=== PATIENT | female | born 1960 | race Caucasian/White ===

== ENCOUNTER → 2016-08-08 | Outpatient (CLI) | payer MEDICAID ==
--- NOTE | 2016-08-09 11:12 | MM ---
Reason for exam: screening (asymptomatic). Last mammogram was performed 1 year and 1 month ago. History: Patient is postmenopausal. Family history of breast cancer in paternal grandmother. Physical Findings: A clinical breast exam by your physician is recommended on an annual basis and results should be correlated with mammographic findings. MG 3D Screening Mammo W/Cad Bilateral CC and MLO view(s) were taken. Prior study comparison: July 20, 2015, bilateral MG 3d screening mammo w/cad. July 08, 2014, bilateral MG screening mammo w CAD. July 04, 2013, bilateral digital screening mammo w/CAD. There are scattered fibroglandular densities. No significant changes when compared with prior studies. ASSESSMENT: Negative, BI-RAD 1 RECOMMENDATION: Routine screening mammogram of both breasts in 1 year.
== END | disposition home or self-care (01) ==
LOC: RADMAMWWP 12:35
PROVIDERS: ATTEND Obstetrics & Gynecology
DX: Z12.31 Encounter for screening mammogram for malignant neoplasm of breast (principal); Z80.3 Family history of malignant neoplasm of breast
CPT/HCPCS: 77063; G0202

== ENCOUNTER 2017-02-01 08:06 | Day surgery (SDC) | payer MEDICAID ==
[2017-01-30 15:20] VITALS: BMI 36.0
--- NOTE | 2017-02-01 07:51 | P.GSHP ---
History of Present Illness H&P Date: 02/01/17 CHIEF COMPLAINT: Colon screen HISTORY OF PRESENT ILLNESS: The patient is a 56-year-old female who presents for colon screen. Lower endoscopy was offered for further evaluation and management. PAST MEDICAL HISTORY: Please see list. PAST SURGICAL HISTORY: Please see list. MEDICATIONS: Please see list. ALLERGIES: Please see list. SOCIAL HISTORY: No illicit drug use FAMILY HISTORY: No reports of Crohn disease or ulcerative colitis. REVIEW OF ORGAN SYSTEMS: CONSTITUTIONAL: No reports of fevers or chills. PHYSICAL EXAM: VITAL SIGNS: Stable GENERAL: Well-developed pleasant in no acute distress. HEENT: No scleral icterus. Extraocular movements grossly intact. Moist buccal mucosa. NECK: Supple without lymphadenopathy. CHEST: Unlabored respirations. Equal bilateral excursions. CARDIOVASCULAR: Regular rate and rhythm. Distal 2+ pulses. ABDOMEN: Soft, nontender, nondistended. MUSCULOSKELETAL: No clubbing, cyanosis, or edema. ASSESSMENT: 1. Colon screen. PLAN: 1. Recommend proceeding with a lower endoscopy Past Medical History Past Medical History: Thyroid Disorder Additional Past Medical History / Comment(s): hx. multiple colon polyps History of Any Multi-Drug Resistant Organisms: None Reported Past Surgical History: Bowel Resection Additional Past Surgical History / Comment(s): D&C, isrrael-colectomy Past Anesthesia/Blood Transfusion Reactions: No Reported Reaction Smoking Status: Never smoker - Past Family History Father Family Medical History: Cancer Additional Family Medical History / Comment(s): AT AGE 69- LUNG CA WAS HEAVY SMOKER Mother Family Medical History: CVA/TIA, Hypertension, Osteoarthritis (OA) Additional Family Medical History / Comment(s): MOM IS 88 Sister(s) Family Medical History: Blood Disorder Additional Family Medical History / Comment(s): factor 5 Medications and Allergies Home Medications Medication Instructions Recorded Confirmed Type Levothyroxine Sodium [Synthroid] 100 mcg PO DAILY 02/05/14 01/30/17 History Calcium Carbonate/Vitamin D3 1 tab PO DAILY 05/16/14 01/30/17 History [Calcium 600 + Vit D Tablet] Loratadine 10 mg PO DAILY PRN 01/15/16 01/30/17 History Allergies Allergy/AdvReac Type Severity Reaction Status Date / Time hydromorphone HCl AdvReac Severe Nausea & Verified 01/30/17 15:02 [From Dilaudid] Vomiting
[~2017-02-01 08:06] MED LIST: LACTATED RINGERS 1,000 ML IV SCH
[2017-02-01 08:27] VITALS: RESP 16; TEMP 96.9
[2017-02-01] MEDS ORDERED: LIDOCAINE 1% 20 ML VIAL (10MG/ML) FOR IV START INTRADERMA ONE (08:34)
[2017-02-01] MEDS ORDERED: PROPOFOL 10 MG/ML 20 ML VIAL IV ONE (08:43)
[2017-02-01] MEDS ORDERED: LIDOCAINE 1% INJ 10MG/ML (20 ML MDV) ONE (08:43)
--- NOTE | 2017-02-01 09:16 | P.PCN ---
Date of Procedure: 02/01/17 Description of Procedure: PREOPERATIVE DIAGNOSIS: Colonoscopy screening. History of the malignant colorectal polyp ascending colon. History of right hemicolectomy. POSTOPERATIVE DIAGNOSIS: Colonoscopy screening. History of the malignant colorectal polyp ascending colon. History of right hemicolectomy. Colorectal polyp at transverse colon. Diverticulosis, scattered. OPERATION: Colonoscopy to the ileocolic anastomosis. Colonoscopy with cold forceps biopsy at 18 cm from the anal verge. Colonoscopy with snare polypectomy at 20 cm from the anal verge. SURGEON: Bettye Guallpa MD. ANESTHESIA: MAC. INDICATIONS: The patient is a 56-year-old female who presents for colonoscopy surveillance following right hemicolectomy 3 years ago for malignant colon polyp. Benefits and risks were described and informed consent was obtained. DESCRIPTION OF PROCEDURE: The patient had undergone Gatorade, MiraLAX and Dulcolax prep. She had been brought into the operating room and laid in the left lateral decubitus position. After adequate intravenous sedation, the rectum was examined with 2% lidocaine jelly. No external hemorrhoids were encountered. The rectal tone was within normal limits. No lesions were palpated in the rectal vault. She had a very tortuous sigmoid colon. Abdominal wall pressure was needed to advance the colonoscope. An Olympus colonoscope was advanced until the ileocecal valve was clearly viewed. The prep was excellent with clear visualization of the mucosal folds. The scope was removed with visualization of each mucosal fold. Mild sigmoid diverticulosis was encountered. Hyperplastic polyps were found at 18 cm from the anal verge 3 of 3 mm in size. These bowels were cold forceps biopsy to completion. At 20 cm from the anal verge, a hyperplastic 4 mm polyp was snare polypectomy. Retroflexion of the scope demonstrated grade 1 internal hemorrhoids without active bleeding or inflammation. The colon was desufflated. The patient had tolerated the procedure well. Withdrawal time was over 6 minutes. FINDINGS: Internal hemorrhoids, grade 1 No external prolapsed hemorrhoids. Total 4 polyps extracted: -Hyperplastic polyps were found at 18 cm from the anal verge 3 of 3 mm in size , cold forceps biopsy to completion. -At 20 cm from the anal verge, a hyperplastic 4 mm polyp was snare polypectomy. Scattered diverticulosis mild at sigmoid colon. No arteriovenous malformations. RECOMMENDATIONS: Lower endoscopy, 2018. Yearly screening for history of colorectal cancer through 2019. Plan - Discharge Summary New Discharge Prescriptions: No Action Levothyroxine Sodium [Synthroid] 100 mcg PO DAILY Calcium Carbonate/Vitamin D3 [Calcium 600 + Vit D Tablet] 1 tab PO DAILY Loratadine 10 mg PO DAILY PRN PRN Reason: allergies Discharge Medication List Levothyroxine Sodium [Synthroid] 100 mcg PO DAILY 02/05/14 [History] Calcium Carbonate/Vitamin D3 [Calcium 600 + Vit D Tablet] 1 tab PO DAILY [History] Loratadine 10 mg PO DAILY PRN 01/15/16 [History]
[2017-02-01 09:54] VITALS: BP 124/77; PULSE 71
== END 2017-02-01 10:17 | disposition home or self-care (01) ==
LOC: ORWHC2ENDO 08:06
PROVIDERS: ATTEND Surgery Plastic and Reconstructive Surgery
DX: Z12.11 Encounter for screening for malignant neoplasm of colon (principal); K63.5 Polyp of colon; K57.30 Diverticulosis of large intestine without perforation or abscess without bleeding; K64.0 First degree hemorrhoids; Q43.8 Other specified congenital malformations of intestine; Z90.49 Acquired absence of other specified parts of digestive tract; Z85.038 Personal history of other malignant neoplasm of large intestine; Z86.010 Personal history of colon polyps; E07.9 Disorder of thyroid, unspecified; Z79.899 Other long term (current) drug therapy; Z88.5 Allergy status to narcotic agent
CPT/HCPCS: 88305; 45380; 45385; J2001; J2704

== ENCOUNTER → 2017-08-15 | Outpatient (CLI) | payer MEDICAID ==
--- NOTE | 2017-08-17 13:02 | MM ---
Reason for exam: screening (asymptomatic). Last mammogram was performed 1 year ago. History: Patient is postmenopausal. Family history of breast cancer in paternal grandmother. Physical Findings: A clinical breast exam by your physician is recommended on an annual basis and results should be correlated with mammographic findings. MG 3D Screening Mammo W/Cad Bilateral CC and MLO view(s) were taken. Prior study comparison: August 08, 2016, bilateral MG 3d screening mammo w/cad. July 20, 2015, bilateral MG 3d screening mammo w/cad. There are scattered fibroglandular densities. No significant changes when compared with prior studies. ASSESSMENT: Negative, BI-RAD 1 RECOMMENDATION: Routine screening mammogram of both breasts in 1 year.
== END | disposition home or self-care (01) ==
LOC: RADMAMWWP 16:16
PROVIDERS: ATTEND Obstetrics & Gynecology
DX: Z12.31 Encounter for screening mammogram for malignant neoplasm of breast (principal)
CPT/HCPCS: 77063; 77067

== ENCOUNTER → 2018-07-27 | Day surgery (SDC) | payer MEDICAID ==
[2018-06-29 14:58] VITALS: BMI 30.9
[~2018-07-27] MED LIST changes: +LIDOCAINE 1% 20 ML VIAL (10MG/ML) FOR IV START INTRADERMA ONE; +MIDAZOLAM 2 MG/2 ML VIAL ONE; +PROPOFOL 10 MG/ML 20 ML VIAL IV ONE; +fentaNYL (PF) 50 MCG/ML 2 ML AMP ONE
--- NOTE | 2018-07-27 08:45 | P.GSHP ---
History of Present Illness H&P Date: 07/27/18 CHIEF COMPLAINT: Colon screen HISTORY OF PRESENT ILLNESS: The patient is a 58-year-old female who presents for colon screen. Lower endoscopy was offered for further evaluation and management. PAST MEDICAL HISTORY: Please see list. PAST SURGICAL HISTORY: Please see list. MEDICATIONS: Please see list. ALLERGIES: Please see list. SOCIAL HISTORY: No illicit drug use FAMILY HISTORY: No reports of Crohn disease or ulcerative colitis. REVIEW OF ORGAN SYSTEMS: CONSTITUTIONAL: No reports of fevers or chills. PHYSICAL EXAM: VITAL SIGNS: Stable GENERAL: Well-developed pleasant in no acute distress. HEENT: No scleral icterus. Extraocular movements grossly intact. Moist buccal mucosa. NECK: Supple without lymphadenopathy. CHEST: Unlabored respirations. Equal bilateral excursions. CARDIOVASCULAR: Regular rate and rhythm. Distal 2+ pulses. ABDOMEN: Soft, nontender, nondistended. MUSCULOSKELETAL: No clubbing, cyanosis, or edema. ASSESSMENT: 1. Colon screen. PLAN: 1. Recommend proceeding with a lower endoscopy Past Medical History Past Medical History: Thyroid Disorder Additional Past Medical History / Comment(s): hx. multiple colon polyps History of Any Multi-Drug Resistant Organisms: None Reported Past Surgical History: Bowel Resection Additional Past Surgical History / Comment(s): D&C, isrrael-colectomy Past Anesthesia/Blood Transfusion Reactions: No Reported Reaction, Family History of Problems w/ Anesthesia Additional Past Anesthesia/Blood Transfusion Reaction / Comment(s): sister-ponv Past Psychological History: No Psychological Hx Reported Smoking Status: Never smoker Past Alcohol Use History: Occasional Past Drug Use History: None Reported - Past Family History Father Family Medical History: Cancer Additional Family Medical History / Comment(s): AT AGE 69- LUNG CA WAS HEAVY SMOKER Mother Family Medical History: CVA/TIA, Hypertension, Osteoarthritis (OA) Additional Family Medical History / Comment(s): MOM IS 88 Sister(s) Family Medical History: Blood Disorder Additional Family Medical History / Comment(s): factor 5 Medications and Allergies Home Medications Medication Instructions Recorded Confirmed Type Levothyroxine Sodium [Synthroid] 100 mcg PO DAILY 02/05/14 07/26/18 History Calcium Carbonate/Vitamin D3 1 tab PO DAILY 05/16/14 07/26/18 History [Calcium 600 + Vit D Tablet] Loratadine 10 mg PO DAILY PRN 01/15/16 07/26/18 History Turmeric Root Extract [Turmeric] 500 mg PO DAILY 06/29/18 07/26/18 History Allergies Allergy/AdvReac Type Severity Reaction Status Date / Time hydromorphone HCl AdvReac Severe Nausea & Verified 07/26/18 09:03 [From Dilaudid] Vomiting
[2018-07-27 12:02] VITALS: RESP 16; TEMP 97.1
--- NOTE | 2018-07-27 13:56 | P.PCN ---
Date of Procedure: 07/27/18 Description of Procedure: PREOPERATIVE DIAGNOSIS: Personal history of colon cancer, appendiceal. Status post right hemicolectomy Colonoscopy surveillance Personal history of high-risk colon polyps POSTPERATIVE DIAGNOSIS: Personal history of colon cancer, appendiceal. Status post right hemicolectomy Colonoscopy surveillance Personal history of high-risk colon polyps Diverticulosis, scattered. OPERATION: Colonoscopy to the ileocecal valve and appendiceal orifice. SURGEON: Bettye Guallpa MD. ANESTHESIA: MAC. INDICATIONS: The patient is a 58-year-old female who presents for colonoscopy screening. Last colonoscopy 1 year ago with multiple high-risk polyps. Benefits and risks were described and informed consent was obtained. DESCRIPTION OF PROCEDURE: The patient had undergone Gatorade, MiraLAX and Dulcolax prep. She had been brought into the operating room and laid in the left lateral decubitus position. After adequate intravenous sedation, the rectum was examined with 2% lidocaine jelly. No external hemorrhoids were encountered. The rectal tone was within normal limits. No lesions were palpated in the rectal vault. The sigmoid colon was highly redundant and floppy. Abdominal wall pressure was required to advance the scope. An Olympus colonoscope was advanced until the ileocolic anastomosis was clearly viewed. The prep was good with visualization of the mucosal folds. The scope was removed. Sigmoid diverticulosis was encountered. No colonic polyps were found. No evidence of focal colitis was found. Retroflexion of the scope demonstrated grade 1 internal hemorrhoids without active bleeding or inflammation. The colon was desufflated. The patient had tolerated the procedure well. Withdrawal time was over 6 minutes. FINDINGS: Internal hemorrhoids, grade 1 No external prolapsed hemorrhoids. No arteriovenous malformations. No adenomatous polyps. No focal colitis. RECOMMENDATIONS: Lower endoscopy in one year for colon cancer surveillance. Plan - Discharge Summary Discharge Rx Participant: No New Discharge Prescriptions: No Action Levothyroxine Sodium [Synthroid] 100 mcg PO DAILY Calcium Carbonate/Vitamin D3 [Calcium 600 + Vit D Tablet] 1 tab PO DAILY Loratadine 10 mg PO DAILY PRN PRN Reason: allergies Turmeric Root Extract [Turmeric] 500 mg PO DAILY Discharge Medication List Levothyroxine Sodium [Synthroid] 100 mcg PO DAILY 02/05/14 [History] Calcium Carbonate/Vitamin D3 [Calcium 600 + Vit D Tablet] 1 tab PO DAILY 05/16/14 [History] Loratadine 10 mg PO DAILY PRN 01/15/16 [History] Turmeric Root Extract [Turmeric] 500 mg PO DAILY 06/29/18 [History] Follow up Appointment(s)/Referral(s): Bettye Guallpa MD [STAFF PHYSICIAN] - As Needed Patient Instructions/Handouts: *Surgery [facility] - (Anesthesia) Endoscopy Discharge Instructions, Diverticulosis (GEN), Diverticulosis Diet (GEN), Colonoscopy (DC) Activity/Diet/Wound Care/Special Instructions: Repeat colonoscopy in 1 year, 2019 Discharge Disposition: HOME SELF-CARE
[2018-07-27 14:02] VITALS: PULSE 73
[2018-07-27 14:33] VITALS: BP 138/74
== END | disposition home or self-care (01) ==
LOC: ORWHC2ENDO 11:20
PROVIDERS: ATTEND Surgery Plastic and Reconstructive Surgery
DX: Z12.11 Encounter for screening for malignant neoplasm of colon (principal); K57.30 Diverticulosis of large intestine without perforation or abscess without bleeding; K64.0 First degree hemorrhoids; Z86.010 Personal history of colon polyps; Z85.038 Personal history of other malignant neoplasm of large intestine; Z90.49 Acquired absence of other specified parts of digestive tract; E07.9 Disorder of thyroid, unspecified; Z80.1 Family history of malignant neoplasm of trachea, bronchus and lung; Z79.890 Hormone replacement therapy; Z79.899 Other long term (current) drug therapy; Z88.5 Allergy status to narcotic agent
CPT/HCPCS: J2250; J3010; J2704; G0105; 45378

== ENCOUNTER → 2018-08-23 | Outpatient (CLI) | payer MEDICAID ==
--- NOTE | 2018-08-27 09:13 | MM ---
Reason for exam: screening (asymptomatic). Last mammogram was performed 1 year ago. History: Patient is postmenopausal. Family history of breast cancer in paternal grandmother. Physical Findings: A clinical breast exam by your physician is recommended on an annual basis and results should be correlated with mammographic findings. MG 3D Screening Mammo W/Cad Bilateral CC and MLO view(s) were taken. Prior study comparison: August 15, 2017, bilateral MG 3d screening mammo w/cad. August 08, 2016, bilateral MG 3d screening mammo w/cad. There are scattered fibroglandular densities. No significant changes when compared with prior studies. ASSESSMENT: Benign, BI-RAD 2 RECOMMENDATION: Routine screening mammogram of both breasts in 1 year.
== END | disposition home or self-care (01) ==
LOC: RADMAMWWP 12:56
PROVIDERS: ATTEND Obstetrics & Gynecology
DX: Z12.31 Encounter for screening mammogram for malignant neoplasm of breast (principal)
CPT/HCPCS: 77063; 77067

== ENCOUNTER → 2020-11-09 | Outpatient (CLI) | payer MEDICAID ==
--- NOTE | 2020-11-10 11:06 | MM ---
Reason for exam: screening (asymptomatic). Last mammogram was performed 2 years and 3 months ago. History: Patient is postmenopausal. Family history of breast cancer in paternal grandmother. Physical Findings: A clinical breast exam by your physician is recommended on an annual basis and results should be correlated with mammographic findings. MG 3D Screening Mammo W/Cad Bilateral CC and MLO view(s) were taken. Prior study comparison: August 23, 2018, bilateral MG 3d screening mammo w/cad. August 15, 2017, bilateral MG 3d screening mammo w/cad. There are scattered fibroglandular densities. There is no discrete abnormality. No significant changes when compared with prior studies. ASSESSMENT: Negative, BI-RAD 1 RECOMMENDATION: Routine screening mammogram of both breasts in 1 year.
== END | disposition home or self-care (01) ==
LOC: RADMAMWWP 14:44
PROVIDERS: ATTEND Obstetrics & Gynecology
DX: Z12.31 Encounter for screening mammogram for malignant neoplasm of breast (principal); Z80.3 Family history of malignant neoplasm of breast
CPT/HCPCS: 77063; 77067

== ENCOUNTER 2021-09-22 08:54 | Day surgery (SDC) | payer MEDICAID ==
[2021-09-20 10:37] VITALS: BMI 39.4
--- NOTE | 2021-09-22 08:51 | P.GSHP ---
History of Present Illness H&P Date: 09/22/21 CHIEF COMPLAINT: Colon screen HISTORY OF PRESENT ILLNESS: The patient is a 61-year-old female who presents for colon screen. Lower endoscopy was offered for further evaluation and management. PAST MEDICAL HISTORY: Please see list. PAST SURGICAL HISTORY: Please see list. MEDICATIONS: Please see list. ALLERGIES: Please see list. SOCIAL HISTORY: No illicit drug use FAMILY HISTORY: No reports of Crohn disease or ulcerative colitis. REVIEW OF ORGAN SYSTEMS: CONSTITUTIONAL: No reports of fevers or chills. PHYSICAL EXAM: VITAL SIGNS: Stable GENERAL: Well-developed pleasant in no acute distress. HEENT: No scleral icterus. Extraocular movements grossly intact. Moist buccal mucosa. NECK: Supple without lymphadenopathy. CHEST: Unlabored respirations. Equal bilateral excursions. CARDIOVASCULAR: Regular rate and rhythm. Distal 2+ pulses. ABDOMEN: Soft, nontender, nondistended. MUSCULOSKELETAL: No clubbing, cyanosis, or edema. ASSESSMENT: 1. Colon screen. PLAN: 1. Recommend proceeding with a lower endoscopy Past Medical History Past Medical History: Thyroid Disorder Additional Past Medical History / Comment(s): hx. multiple colon polyps History of Any Multi-Drug Resistant Organisms: None Reported Past Surgical History: Bowel Resection Additional Past Surgical History / Comment(s): D&C, isrrael-colectomy Past Anesthesia/Blood Transfusion Reactions: No Reported Reaction, Family History of Problems w/ Anesthesia Additional Past Anesthesia/Blood Transfusion Reaction / Comment(s): sister-ponv Past Psychological History: No Psychological Hx Reported Smoking Status: Never smoker Past Alcohol Use History: Occasional Past Drug Use History: None Reported - Past Family History Father Family Medical History: Cancer Additional Family Medical History / Comment(s): AT AGE 69- LUNG CA WAS HEAVY SMOKER Mother Family Medical History: CVA/TIA, Hypertension, Osteoarthritis (OA) Additional Family Medical History / Comment(s): MOM IS 88 Sister(s) Family Medical History: Blood Disorder Additional Family Medical History / Comment(s): factor 5 Medications and Allergies Home Medications Medication Instructions Recorded Confirmed Type Levothyroxine Sodium [Synthroid] 100 mcg PO DAILY 02/05/14 09/20/21 History Loratadine 10 mg PO DAILY PRN 01/15/16 09/20/21 History Turmeric Root Extract [Turmeric] 500 mg PO DAILY 06/29/18 09/20/21 History Calcium Carbonate [Calcium] 600 mg PO DAILY 09/20/21 09/20/21 History Cholecalciferol [Vitamin D3 (25 25 mcg PO DAILY 09/20/21 09/20/21 History Mcg = 1000 Iu)] Allergies Allergy/AdvReac Type Severity Reaction Status Date / Time hydromorphone HCl AdvReac Severe Nausea & Verified 09/20/21 10:31 [From Dilaudid] Vomiting
[~2021-09-22 08:54] MED LIST changes: -LIDOCAINE 1% 20 ML VIAL (10MG/ML) FOR IV START INTRADERMA ONE; -MIDAZOLAM 2 MG/2 ML VIAL ONE; -PROPOFOL 10 MG/ML 20 ML VIAL IV ONE; -fentaNYL (PF) 50 MCG/ML 2 ML AMP ONE
[2021-09-22 09:45] VITALS: TEMP 96.9
[2021-09-22] MEDS ORDERED: PROPOFOL 10 MG/ML 20 ML VIAL IV ONE (10:12)
[2021-09-22 10:47] VITALS: BP 163/94; PULSE 72; RESP 18
--- NOTE | 2021-09-22 11:12 | P.PCN ---
Date of Procedure: 09/22/21 Description of Procedure: PREOPERATIVE DIAGNOSIS: History of colon cancer Colonoscopy screening POSTOPERATIVE DIAGNOSIS: Status post right colectomy Tubular adenoma ascending colon Sigmoid diverticulosis Internal hemorrhoids, grade 2 OPERATION: Colonoscopy to the ileocolic anastomosis Colonoscopy with cold forceps biopsy SURGEON: Bettye Guallpa MD. ANESTHESIA: MAC. INDICATIONS: The patient is an 61-year-old female with history of colon cancer status post right colon resection. Last colonoscopy 3 years ago. Benefits and risks were described and informed consent was obtained. DESCRIPTION OF PROCEDURE: The patient had undergone Sutab prep. The patient had been brought into the operating room and laid in the left lateral decubitus position. After adequate intravenous sedation, the rectum was examined with 2% lidocaine jelly. External hemorrhoids were encountered. The rectal tone was within normal limits. No lesions were palpated in the rectal vault. An Olympus colonoscope was advanced to the ileocolic anastomosis. The colon was redundant. The prep was fair. Sigmoid diverticulosis was encountered. Colonic polyps were found and removed. No evidence of focal colitis was found. Retroflexion of the scope demonstrated grade 3 internal hemorrhoids without active bleeding or inflammation. The colon was desufflated. The patient had tolerated the procedure well. Withdrawal time was over 6 minutes. FINDINGS: Aronchick preparation quality scale 2+ (1-5) Internal hemorrhoids, grade 3 External hemorrhoids, grade 3 No arteriovenous malformations. Evidence of right hemicolectomy with ileocolic anastomosis Sigmoid diverticulosis Removal of 1 polyps: - Cold forceps biopsy at ascending colon, 4 mm polyp. No focal colitis. RECOMMENDATIONS: Repeat colonoscopy in 3 years, 2024 Plan - Discharge Summary Discharge Rx Participant: No New Discharge Prescriptions: Continue Levothyroxine Sodium [Synthroid] 100 mcg PO DAILY Loratadine 10 mg PO DAILY PRN PRN Reason: allergies Turmeric Root Extract [Turmeric] 500 mg PO DAILY Cholecalciferol [Vitamin D3 (25 Mcg = 1000 Iu)] 25 mcg PO DAILY Calcium Carbonate [Calcium] 600 mg PO DAILY Discharge Medication List Levothyroxine Sodium [Synthroid] 100 mcg PO DAILY 02/05/14 [History] Loratadine 10 mg PO DAILY PRN 01/15/16 [History] Turmeric Root Extract [Turmeric] 500 mg PO DAILY 06/29/18 [History] Calcium Carbonate [Calcium] 600 mg PO DAILY 09/20/21 [History] Cholecalciferol [Vitamin D3 (25 Mcg = 1000 Iu)] 25 mcg PO DAILY 09/20/21 [History] Follow up Appointment(s)/Referral(s): Bettye Guallpa MD [STAFF PHYSICIAN] - As Needed Patient Instructions/Handouts: *[facility] - (Anesthesia) Endoscopy Discharge Instructions, Diverticulosis (DC), Colorectal Polyps (GEN), Diverticulosis Diet (GEN), Colonoscopy (DC) Activity/Diet/Wound Care/Special Instructions: Repeat colonoscopy and 3 years, 2024 Discharge Disposition: HOME SELF-CARE
== END 2021-09-22 11:13 | disposition home or self-care (01) ==
LOC: ORWHC2ENDO 08:54
PROVIDERS: ATTEND Surgery Plastic and Reconstructive Surgery
DX: Z12.11 Encounter for screening for malignant neoplasm of colon (principal); D12.2 Benign neoplasm of ascending colon; K57.30 Diverticulosis of large intestine without perforation or abscess without bleeding; K64.2 Third degree hemorrhoids; K64.4 Residual hemorrhoidal skin tags; Z98.0 Intestinal bypass and anastomosis status; Z85.038 Personal history of other malignant neoplasm of large intestine; Z86.010 Personal history of colon polyps; Z90.49 Acquired absence of other specified parts of digestive tract; E07.9 Disorder of thyroid, unspecified; Z79.890 Hormone replacement therapy; Z79.899 Other long term (current) drug therapy; Z88.5 Allergy status to narcotic agent; Z98.890 Other specified postprocedural states; Z80.1 Family history of malignant neoplasm of trachea, bronchus and lung; Z82.3 Family history of stroke; Z82.49 Family history of ischemic heart disease and other diseases of the circulatory system; Z82.61 Family history of arthritis
CPT/HCPCS: 88305; 45380; J2704

== ENCOUNTER → 2021-11-26 | Outpatient (CLI) | payer MEDICAID ==
--- NOTE | 2021-11-27 06:37 | BD ---
EXAMINATION TYPE: Axial Bone Density DATE OF EXAM: 11/26/2021 COMPARISON: 07.23.2012 CLINICAL HISTORY: 61 years year old Female. ICD-10 CODE: N95.1 POST MENOPAUSAL SYMPTOMS Height: 62.3 Weight: 213 FRAX RISK QUESTIONS: Family History (Parent hip fracture): YES RISK FACTORS HISTORY OF: Family History of Osteoporosis: YES, MOTHER Postmenopausal woman: YES, AT AGE 49 Lost more than 2 inches in height since high school: YES Hyperparathyroidism: NO Adrenal Insufficiency: NO MEDICATIONS: Thyroid Medications: YES, SYNTHROID FOR ABOUT 12 YRS Additional Medications: VIT D AND CALCIUM Additional History: THYROID, HEIGHT LOSS EXAM MEASUREMENTS: Bone mineral densitometry was performed using the [employer] System. Bone mineral density as measured about the Lumbar spine is: ----- L1-L4(G/cm2): 1.270 T Score Values are as follows: ----- L1: 0.5 ----- L2: -0.4 ----- L3: 0.8 ----- L4: 1.7 ----- L1-L4: 0.7 Bone mineral density has: Decreased -2.5% since study of: 07.23.2012 Bone mineral density about the R hip (g/cm2): 1.179 Bone mineral density about the L hip (g/cm2): 1.188 T Score values are as follows: -----R Neck: 0.6 -----L Neck: 0.5 -----R Total: 1.4 -----L Total: 1.4 Bone mineral density has: Increased 8.2% since study of: 07.23.2012 FRAX%s: The graph provided illustrates a 5.4% chance for a major osteoporotic fx and a 0.1% chance fo r the hips probability for fx in 10 years time. IMPRESSION: Normal (Values between +1 and -1 indicate normal bone mass). Consider repeating this study in 5 year s or sooner if there is some new clinical indication. NOTE: T-SCORE=SD OF THE YOUNG ADULT MEAN.
--- NOTE | 2021-11-29 07:57 | MM ---
Reason for Exam: Screening (asymptomatic). Last mammogram was performed 1 year(s) and 1 month(s) ago. Patient History: Menarche at age 11. First Full-Term at age 27. Postmenopausal. Paternal grandmother had breast cancer. Risk Values: Jadyn 5 year model risk: 1.7%. NCI Lifetime model risk: 7.7%. Prior Study Comparison: 08/15/2017 Bilateral Screening Mammogram, [facility]. 08/23/2018 Bilateral Screening Mammogram, [facility]. 11/09/2020 Bilateral Screening Mammogram, [facility]. Tissue Density: There are scattered fibroglandular densities. Findings: Analyzed By CAD. There are few scattered benign-appearing punctate calcifications bilaterally redemonstrated. There is no suspicious group of microcalcifications or new suspicious mass in either breast. Overall Assessment: Benign, BI-RAD 2 Management: Screening Mammogram of both breasts in 1 year. A clinical breast exam by your physician is recommended on an annual basis and results should be correlated with mammographic findings. Electronically signed and approved by: Kervin Vallejo M.D.
== END | disposition home or self-care (01) ==
LOC: RADBDWWP 10:41
PROVIDERS: ATTEND Obstetrics & Gynecology
DX: Z12.31 Encounter for screening mammogram for malignant neoplasm of breast (principal); Z78.0 Asymptomatic menopausal state; Z80.3 Family history of malignant neoplasm of breast
CPT/HCPCS: 77063; 77067; 77080

== ENCOUNTER → 2022-11-29 | Outpatient (CLI) | payer MEDICAID ==
--- NOTE | 2022-11-29 12:37 | MM ---
Reason for Exam: Screening (asymptomatic). Last screening mammogram was performed 12 month(s) ago. Patient History: Menarche at age 11. First Full-Term at age 27. Postmenopausal. Patient has history of breast feeding. Paternal grandmother had breast cancer. Risk Values: Jadyn 5 year model risk: 1.7%. NCI Lifetime model risk: 7.4%. Prior Study Comparison: 08/23/2018 Bilateral Screening Mammogram, [facility]. 11/09/2020 Bilateral Screening Mammogram, [facility]. 11/26/2021 Bilateral MG 3D screening mammo w/cad, [facility]. Tissue Density: The breast tissue is almost entirely fat. Findings: Analyzed By CAD. There is no suspicious group of microcalcifications or new suspicious mass in either breast. Overall Assessment: Negative, BI-RAD 1 Management: Screening Mammogram of both breasts in [address] [facility] will attempt to contact patient to return for supplemental views and ultrasound if indicated. Patient should continue monthly self-breast exams. A clinical breast exam by your physician is recommended on an annual basis. This exam should not preclude additional follow-up of suspicious palpable abnormalities. Note on Jadyn scores and lifetime risk: 1. A Jadyn score greater than 3% is considered moderate risk. If this is the case, consider specialist referral to assess eligibility for a risk reducing agent. 2. If overall lifetime risk for the development of breast cancer is 20% or higher, the patient may qualify for future screening with alternating mammogram and breast MRI. Electronically signed and approved by: Uriel Gardner DO
== END | disposition home or self-care (01) ==
LOC: RADMAMWWP 10:29
PROVIDERS: ATTEND Family Medicine
DX: Z12.31 Encounter for screening mammogram for malignant neoplasm of breast (principal); Z78.0 Asymptomatic menopausal state; Z80.3 Family history of malignant neoplasm of breast
CPT/HCPCS: 77063; 77067

== ENCOUNTER → 2023-04-19 | Outpatient (CLI) | payer MEDICAID ==
--- NOTE | 2023-04-19 12:42 | US ---
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 No HTN. No high cholesterol. TECHNIQUE: Carotid duplex ultrasound examination. Indirect Doppler criteria was utilized. FINDINGS: EXAM MEASUREMENTS: RIGHT: Peak Systolic Velocity (PSV) cm/sec ----- Right CCA: 60.7 ----- Right ICA: 80.8 ----- Right ECA: 85.3 ICA/CCA ratio: 1.3 RIGHT: End Diastole cm/sec ----- Right CCA: 12.7 ----- Right ICA: 27.6 ----- Right ECA: 8.4 LEFT: Peak Systolic Velocity (PSV) cm/sec ----- Left CCA: 58.1 ----- Left ICA: 71.2 ----- Left ECA: 73.8 ICA/CCA ratio: 1.2 LEFT: End Diastole cm/sec ----- Left CCA: 11.9 ----- Left ICA: 22.3 ----- Left ECA: 0.0 VERTEBRALS (direction of flow): Right Vertebral: Antegrade Left Vertebral: Antegrade Rhythm: Normal [employer] NOTES: No plaque, wall thickening, elevated velocities or significant stenosis. IMPRESSION: No hemodynamically significant stenosis. No significant plaque identified. Criteria for Assigning % of Stenosis / Diameter reduction (Estimation based on the indirect measurements of the internal carotid artery velocities (ICA PSV). 1. Normal (no stenosis)=ICA PSV < 125 cm/s: ratio < 2.0: ICA EDV<40 cm/s. 2. Less than 50% stenosis=ICA PSV < 125 cm/s: ratio < 2.0: ICA EDV<40 cm/s. 3. 50 to 69% stenosis=ICA PSV of 125 to 230 cm/s: ration 2.0 ? 4.0: ICA EDV 40-100 cm/s. 4. Greater than 70% stenosis to near occlusion= ICA PSV > 230 cm/s: ratio > 4.0: ICA EDV > 100 cm/s. 5. Near occlusion= ICA PSV velocities may be low or undetectable: variable ratio and ICA EDV. 6. Total occlusion=unable to detect flow.
== END | disposition home or self-care (01) ==
LOC: RADUSWWP 12:03
PROVIDERS: ATTEND Family Medicine
DX: H34.212 Partial retinal artery occlusion, left eye (principal)
CPT/HCPCS: 93880

== ENCOUNTER → 2023-12-18 | Outpatient (CLI) | payer MEDICAID ==
--- NOTE | 2023-12-19 10:41 | MM ---
Reason for Exam: Screening (asymptomatic). Last screening mammogram was performed 12 month(s) ago. Patient History: Menarche at age 11. First Full-Term at age 27. Postmenopausal. Patient has history of breast feeding. Paternal grandmother had breast cancer. Risk Values: Jadyn 5 year model risk: 1.8%. NCI Lifetime model risk: 7.2%. Prior Study Comparison: 11/09/2020 Bilateral Screening Mammogram, [facility]. 11/26/2021 Bilateral MG 3D screening mammo w/cad, [facility]. 11/29/2022 Bilateral MG 3D screening mammo w/cad, [facility]. Tissue Density: There are scattered areas of fibroglandular density. Findings: Analyzed By CAD. There is no suspicious group of microcalcifications or new suspicious mass in either breast. Overall Assessment: Negative, BI-RAD 1 Management: Screening Mammogram of both breasts in 1 year. . Patient should continue monthly self-breast exams. A clinical breast exam by your physician is recommended on an annual basis. This exam should not preclude additional follow-up of suspicious palpable abnormalities. Note on Jadyn scores and lifetime risk: 1. A Jadyn score greater than 3% is considered moderate risk. If this is the case, consider specialist referral to assess eligibility for a risk reducing agent. 2. If overall lifetime risk for the development of breast cancer is 20% or higher, the patient may qualify for future screening with alternating mammogram and breast MRI. Electronically signed and approved by: Neville Smith M.D. Radiologis
== END | disposition home or self-care (01) ==
LOC: RADMAMWWP 08:59
PROVIDERS: ATTEND Family Medicine
DX: Z12.31 Encounter for screening mammogram for malignant neoplasm of breast (principal); R92.323 Mammographic fibroglandular density, bilateral breasts; Z78.0 Asymptomatic menopausal state; Z80.3 Family history of malignant neoplasm of breast
CPT/HCPCS: 77063; 77067

== ENCOUNTER → 2024-10-05 | Outpatient (CLI) | payer MEDICARE | END | disposition home or self-care (01) | LOC: LABWHC1 09:25 | PROVIDERS: ATTEND Family Medicine | DX: Z15.01 Genetic susceptibility to malignant neoplasm of breast (principal); Z15.02 Genetic susceptibility to malignant neoplasm of ovary; Z84.81 Family history of carrier of genetic disease | CPT/HCPCS: 36415; 81162 ==

== ENCOUNTER → 2024-12-17 | Outpatient (CLI) | payer MEDICARE ==
--- NOTE | 2024-12-17 17:37 | MM ---
Reason for Exam: Screening (asymptomatic). Last screening mammogram was performed 12 month(s) ago. Patient History: Menarche at age 11. First Full-Term at age 27. Postmenopausal. Patient has history of breast feeding. Paternal grandmother had breast cancer. Risk Values: Jadyn 5 year model risk: 1.8%. NCI Lifetime model risk: 6.9%. Prior Study Comparison: 11/26/2021 Bilateral MG 3D screening mammo w/cad, [facility]. 11/29/2022 Bilateral MG 3D screening mammo w/cad, [facility]. 12/18/2023 Bilateral MG 3D screening mammo w/cad, [facility]. Tissue Density: There are scattered areas of fibroglandular density. Findings: Analyzed By CAD. There is no suspicious group of microcalcifications or new suspicious mass in either breast. Overall Assessment: Negative, BI-RAD 1 Management: Screening Mammogram of both breasts in 1 year. Patient should continue monthly self-breast exams. A clinical breast exam by your physician is recommended on an annual basis. This exam should not preclude additional follow-up of suspicious palpable abnormalities. Note on Jadyn scores and lifetime risk: 1. A Jadyn score greater than 3% is considered moderate risk. If this is the case, consider specialist referral to assess eligibility for a risk reducing agent. 2. If overall lifetime risk for the development of breast cancer is 20% or higher, the patient may qualify for future screening with alternating mammogram and breast MRI. [facility], , 12/17/2024 5:34 PM. Electronically signed and approved by: Patrice Camarillo M.D. Radiologist
== END | disposition home or self-care (01) ==
LOC: RADMAMWWP 10:35
PROVIDERS: ATTEND Family Medicine
DX: Z12.31 Encounter for screening mammogram for malignant neoplasm of breast (principal); R92.323 Mammographic fibroglandular density, bilateral breasts; Z78.0 Asymptomatic menopausal state; Z80.3 Family history of malignant neoplasm of breast
CPT/HCPCS: 77063; 77067